=== PATIENT | female | born 1990 | race Caucasian/White ===

== ENCOUNTER 2016-08-14 10:53 | Day surgery (SDC) | payer BC ==
[~2016-08-14] VITALS: Ht 157.5 cm; Wt 100.8 kg
[2016-08-14] VITALS (17 sets, daily range): BP systolic 102–129; BP diastolic 56–74; PULSE 64–98; RESP 14–18; TEMP 98.2–98.5; O2SAT 96–100; Ht 157.5 cm; Wt 100.8 kg
[~2016-08-14 10:53] MED LIST: FLUO20CA30 PO; FLUT16SP EA NOSTRIL; LIDOCAINE 1% (10mg/ml) 2ml SDV INJ ONE; LR 1,000 ML IV SCH; OMEP40CA52 PO
[2016-08-14] MEDS ORDERED: LORA10TA62 (11:06)
--- OUTSIDE RECORDS SUMMARY | 2016-08-14 12:04 | XMS REPORT | Continuity of Care Document ---
Author Author [facility] Organization [facility] Address Unknown Phone Unavailable Care Team Providers Care Senior Sales Representative Name Role Phone LOLIS PADILLA DO Primary Care Physician [phone] Insurance Providers Guarantor Richmond Avlarado Address [address] [place] [address] [place] [address] CP Email [email or web address] Policy Number [id number] Subscriber's Name Jenn Alvarado Relationship 19 Child Group Number [id number] Chief Complaint and Reason for Visit Chief Complaint Cough,Fever,Flu,URI Reason for Visit Acute bacterial sinusitis [id number] Problems Past Problems Medical Problem Onset Date Acute bacterial sinusitis Unknown Eustachian tube dysfunction Unknown Medications Current Home Medications Medication Dose Units Route Directions Days Qty Instructions Start Date Amoxicillin/Potassium Clav (Augmentin 875-125 Tablet) 1 Each Tablet 1 Tab Oral Twice A Day 10 Days 20 Tablet TAKE WITH MEALS Supervising physician Dr. 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 [phone] 04/01/16 Fluticasone Propionate (Fluticasone Prop 50 Mcg/Actuation Nasal [place]) 120 [place]/16 G [place] 2 [place] Each Nostril Daily 14 Days [address] 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 [phone] 04/01/16 Ibuprofen 800 Mg Tablet 1 Tab Oral Every 8 Hours Prn as needed for Pain 10 Days [address] Eben Olson [employer]ining Machine Operator * [facility] [address] [facility] [phone] 04/01/16 No Daily Medications 04/01/16 Past Home Medications Medication Directions Ordered Status Norgestimate-Ethinyl Estradiol (Trinessa) 1 Tab Tablet, 1 Tab Oral Daily Discontinued Phenazopyridine Hcl (Pyridium) 100 Mg Tablet, 100 Mg Oral 09/27/12 Discontinued Topamax , Oral Daily 09/27/12 Discontinued Viibryd , Oral Daily 09/27/12 Discontinued Xanax , Oral As Needed 09/27/12 Discontinued Social History Social History Problem Response Recorded Date/Time Onset Date Status Hx Substance Use No 06/20/2015 11:27am Not Applicable Not Applicable Hx Alcohol Use Yes 06/20/2015 11:27am Not Applicable Not Applicable Has the pt used tobacco in the last 12 months Yes 06/20/2015 11:27am Not Applicable Not Applicable Hospital Discharge Instructions No hospital discharge instructions. Plan of Care Discharge Date 04/01/16 6:15pm Disposition 01 DISCHARGED HOME, SELF-CARE Condition at Discharge Stable Instructions/Education Provided DI for Sinusitis DI for Eustachian Tube Dysfunction-Adult Prescriptions See Medication Section Referrals LOLIS PADILLA DO Address: [address] [place] [phone] Additional Instructions/Education Take Augmentin as directed. Take Ibuprofen for pain as needed. Use Flonase spray for sinus pain. Follow with PCP if not improving. Functional Status No functional status results. Allergies, Adverse Reactions, Alerts Allergen Type Severity Reaction Status Last Updated Cefprozil Allergy Unknown Active 04/01/16 Immunizations Query Response on File Recorded Date/Time Hx Influenza Vaccination Y MAR 2015 06/20/15 11:27am Hx Pneumococcal Vaccination No 06/20/15 11:27am Hx Influenza Vaccination Y MAR 2015 06/20/15 11:27am Hx Tetanus Toxoid Vaccination Y t 09/28/12 2:59pm Influenza Vaccine Hx LAST fall04/01/16 5:59pm Tetanus Diptheria Vaccine History UP TO DATE 04/01/16 5:59pm Vital Signs Acute Vital Signs Vital Response Date/Time Temperature (Fahrenheit) 98.0 deg F (96.8 - 99.1) 04/01/2016 5:57pm Temperature (Calculated Celsius) 36.17785 degrees C (36.0 - 37.3) 04/01/2016 5:57pm Pulse Rate (adult) 80 bpm (60 - 100) 04/01/2016 5:57pm Respiratory Rate 20 breaths/min (10 - 20) 04/01/2016 5:57pm O2 Sat by Pulse Oximetry 98 % (90 - 100) 04/01/2016 5:57pm Blood Pressure 127/88 mm Hg 04/01/2016 5:57pm Height (Inches) 62.00 inches 04/01/2016 5:57pm Weight (Kilograms) 106.300 kg 04/01/2016 5:57pm Body Mass Index (BMI) 42.0 04/01/2016 5:57pm Results No known relevant diagnostic tests, laboratory data and/or discharge summary. Procedures No known history of procedures. Encounters Encounter Location Arrival/Admit Date Discharge/Depart Date Attending Provider Departed Emergency Room [facility] 04/01/16 5:48pm 04/01/16 6: 15pm ARCHIE ORTA APRN Recent Diagnosis
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
[2016-08-14] MEDS ORDERED: SALINE FLUSH 10ml SYRINGE ONE (12:25)
[2016-08-14] MEDS ORDERED: FENTANYL 100mcg/2ml INJECTION ONE (12:25)
[2016-08-14] MEDS ORDERED: MIDAZOLAM 5mg/5ml INJECTION ONE ×2 (12:25→12:48)
[2016-08-14] MEDS ORDERED: FENTANYL 100mcg/2ml INJECTION IV PRN (12:45)
[2016-08-14] MEDS ORDERED: MIDAZOLAM 5mg/5ml INJECTION IV PRN (12:45)
[2016-08-14] MEDS ORDERED: DiphenhydrAMINE 50 MG/ML INJECTION ONE (12:53)
[2016-08-14] MEDS ORDERED: GLUCAGON 1 MG INJECTION ONE (13:02)
[2016-08-14] MEDS ORDERED: .STERILE WATER FOR INJECTION 10 ML ONE (13:02)
[2016-08-14] MEDS ORDERED: GLUCAGON 1 MG INJECTION IV PRN (13:15)
[2016-08-14] MEDS ORDERED: DiphenhydrAMINE 50 MG/ML INJECTION IV ONE (13:15)
[2016-08-14] MEDS ORDERED: HC A10FO5 RECTALLY (13:38)
--- NOTE | 2016-08-15 08:43 | OPNOTEF ---
DATE OF PROCEDURE 08/14/2016 PHYSICIAN Dexter Amaro, DO PROCEDURE Colonoscopy INDICATIONS Rectal bleeding. ASA CLASSIFICATION 1 DESCRIPTION OF PROCEDURE Consent signed on the chart. Routine monitoring with ECG, continuous oximetry, and noninvasive blood pressure performed throughout the procedure and found to be within normal limits. IV sedation performed with 10 mg of Versed and 100 mcg of fentanyl. She was also given 50 mg of Benadryl. Prior to the procedure, patient was brought to the endoscopy lab where brief review of her medical history and physical exam performed. The procedure was described to her. She was agreeable to continue. All questions answered. She was given IV sedation and placed in the left lateral decubitus position. A digital rectal exam revealed no palpable masses. Colonoscope was introduced through the anal verge and immediately noted evidence of recent bleeding. The colonoscope was advanced to the cecum and then biopsy taken of the terminal ileum. With careful inspection of the mucosa from the cecum through the ascending, transverse, descending, and sigmoid colon, there were no masses, lesions, or diverticula. However, from the anal verge to 20 cm, there was evidence of inflammation/proctitis. This was photographed and biopsied. She tolerated the procedure well. There were no complications. IMPRESSION 1. Colonoscopy into the terminal ileum with terminal ileum biopsy. 2. Proctitis with biopsy. RECOMMENDATIONS 1. I am going to treat her initially with ProctoFoam. 2. Review the path report. 3. Treat as indicated by the path report. ANT
== END 2016-08-14 14:14 | disposition home or self-care (01) ==
LOC: NSC 10:53
PROVIDERS: ATTEND Internal Medicine
DX: K62.89 Other specified diseases of anus and rectum (principal); K62.5 Hemorrhage of anus and rectum; K58.0 Irritable bowel syndrome with diarrhea; K21.9 Gastro-esophageal reflux disease without esophagitis; F33.9 Major depressive disorder, recurrent, unspecified; E66.9 Obesity, unspecified; Z68.41 Body mass index [BMI] 40.0-44.9, adult; Z79.899 Other long term (current) drug therapy
CPT/HCPCS: 45380; 81025; J1200; J1610; J2250; J3010; J7120